=== PATIENT | male | born 1985 | race Caucasian/White ===

== ENCOUNTER 2020-03-29 00:40 | Inpatient (IN) | payer SELFPAY ==
[2020-03-29 00:40] VITALS: BMI 24.4
[2020-03-29 01:39] VITALS: BP 129/81; PULSE 94; RESP 18; TEMP 36.5; O2SAT 95
--- NOTE | 2020-03-29 04:28 | PC.NURSE ---
Patient is calm and cooperative on admission. Very articulate.
[2020-03-29 06:00] VITALS: BP 96/57; PULSE 62; RESP 17; TEMP 36.8; O2SAT 99
[2020-03-29] MEDS: buPROPion SR (12 HR) 100 mg Tablet 200 MG PO (08:59)
--- NOTE | 2020-03-29 09:51 | PM.NHP ---
Providers/Chief Complaint Admitting Physician: Aramis Emanuel MD Chief Complaint: si/depression HPI NPU History of Present Illness Boy Emanuel is a 34 year old male who presented to an outside emergency room and they were unable to find him a bed so he was transferred to [facility] and admitted to the neuropsychiatric unit secondary to reports of psychosis, feeling unsafe with a history of previous psychosis and hospitalization. He reports today that he is from what he can. He came up to the [place] area to go hunting and fishing with a friend who he knew his sister quite well with a report that there will be jobs here for him to obtain. Unfortunately when he got here there was no job in the situation at his friend's place got strange he reports. He reports that his friend is a and that he and some of the other people in the house put some type of spell on him. He reports that his mind is being controlled and they have also hacked into his phone. He tells us around the movie and visible dragon that was released in 2013. He reports that they did something to his phone and made it seem like to move he was released in 2019. He reports that he had gone to the hospital twice in the last week or so and finally they admitted him this time. He reports that there was a fan in the house and when he looked at a marking on the fan that should have been there he noticed that there was a marking on the bottom of the fan had the name of the actor from the movie on it and when he looked up into the other room the seem that was playing on his phone and was playing on the TV. He endorsed other phenomenon and reports that a woman that stays there lives in a wheelchair reports that she used to practice witchcraft but denied doing it currently. He reports that he was hospitalized about 2 years ago in [facility] for the same kinds of symptoms. He has been alternatives of initiating Abilify and he understood and agreed to proceed as is documented in this note. Psychiatric history: He endorses only these 2 hospitalizations in his life. He reports that he has had psychiatric follow-up. However he cannot give specifics. Substance abuse history: He reports he smokes about a pack of cigarettes a day, cocaine, and he smokes marijuana daily, that he has a history of methamphetamine use as well as opiate use with Suboxone maintenance therapy at one point in his life as well as methadone treatment at one point in his life. He reports he has been to rehab about 10-15 times and has had 2 DUIs. Family history: He does report addiction issues on his father side is unclear of any mental health history or history of family members with suicide attempts or completions. Developmental history: He reports that he was born with a broken collarbone. He endorsed learning to walk and talk and meeting his developmental milestones on time. He does report that he had speech therapy when he was in his grade school years but denied learning support, emotional support or special education classes. Psychosocial history: He reports his mother and father were together when he was born and that he has an older sister who is also a product of that union. He denies either of his parents having kids with any other partners. He reports that his childhood was good and denied emotional, physical or sexual abuse. He endorsed getting to the 11th grade in high school, not finishing but going on to get his GED. 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 He is heterosexual with his longest relationship being 2 years. He is never been , he is never had biological children, he is never been in the , and he endorses being a [employer]. 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 He reports he is currently homeless and trying to get back to [place]. Legal history: He reports he is been in care home about 5 times and that the longest period of time he was in care home at once was 3 years. Medical history: Denied. Meds NPU Home Medications Medication Instructions Recorded Confirmed Last Taken Type bupropion HCl [Wellbutrin SR] 200 mg PO DAILY 03/29/20 03/29/20 Unknown History quetiapine [Seroquel] 300 mg PO BEDTIME 03/29/20 03/29/20 Unknown History Allergies Allergy/AdvReac Type Severity Reaction Status Date / Time No Known Allergies Allergy Verified 03/29/20 01:05 Mental Status Exam MSE Comments: This is a well-nourished, well-developed white male with adequate dress grooming and limited eye contact. No abnormal movements except for psychomotor retardation. Cooperative with exam in mild distress. Speech was decreased rate and volume. Mood described as okay, affect anxious. Thought process organized. Thought content: Patient denied any suicidal or homicidal ideation, there were no delusions reported but clear paranoid and persecutory delusions noted. He reported auditory and visual hallucinations but none currently. Attention and duration were intact and memory was intermittently reliable but none were formally tested. He was alert and oriented x3. Insight are impaired. Impulse control is limited. Vitals/I&O/Wt Last Vital Signs Temp 97.6 F 03/29/20 20:46 Pulse 74 03/29/20 20:46 Resp 17 03/29/20 20:46 BP 107/68 03/29/20 20:46 Pulse Ox 96 03/29/20 20:46 Weight last 48 hrs Weight 83.915 kg A&P Assessment and plan (1) Psychosis: Status: Acute (2) Methamphetamine abuse: Status: Acute (3) Cannabis abuse: Status: Acute Additional A&P Information This is a 34-year-old white male with a previous history of similar presentation with active cannabis and methamphetamine use with psychosis which either represents a drug-induced phenomenon or longstanding schizophrenia that might be exacerbated by his use who presents open to a trial of Abilify. 1. Continue current medication. Except: Start Abilify 10 mg p.o. every morning. 2. Continue every 15 minute checks for safety. 3. Encourage individual, group and milieu therapy. 4. Recommend sober living treatment at the highest level of care to which he is willing to commit. 5. We will need to explore ways to assist him to get back home if he chooses to make that decision once his psychosis clears. Involuntary Hold Information 96 Hour Hold: 96 Hour Involuntary Admission: Yes 96 Hour Hold Ending Date: 04/03/20 96 Hour Hold Ending Time: 00:40 Attestations NPU Medical Necessity Statement*: Inpatient hospitalization is medically necessary and the clinically appropriate intervention at this time. We will initiate/monitor medications and make changes as indicated. He will be in the hospital for over 2 midnights. Likely length of stay 3 to 5 days. Coding Level of Care Code Acute Tax Commissioner for Josseline Antonio Diagnoses Psychosis F29 Methamphetamine abuse F15.10 Cannabis abuse F12.10
[2020-03-29 14:00] VITALS: BP 127/59; PULSE 89; RESP 18; TEMP 36.5; O2SAT 98
[2020-03-29] MEDS: ARIPiprazole 10 mg Tablet PO (17:20)
[2020-03-29 20:46] VITALS: BP 107/68; PULSE 74; RESP 17; TEMP 36.4; O2SAT 96
[2020-03-29] MEDS: trazodone 50 mg Tablet PO (20:47)
[2020-03-29] MEDS: quetiapine 300 mg Tablet PO (20:47)
[2020-03-29] MEDS: hyDROXYzine 25 mg Capsule 50 MG PO (20:47)
[2020-03-29] MEDS: ondansetron 4 MG Tablet PO (23:19)
[2020-03-30 06:00] VITALS: BP 130/80; PULSE 89; RESP 17; TEMP 36.6; O2SAT 96
[2020-03-30] MEDS: buPROPion SR (12 HR) 100 mg Tablet 200 MG PO (09:26)
[2020-03-30] MEDS: ARIPiprazole 10 mg Tablet PO (09:26)
--- NOTE | 2020-03-30 12:42 | PM.NPN ---
Subjective NPU Subjective: Interval history: Labs today reporting that he is not having any side effects from the medication and that he is having a decrease in the troubling thoughts. He did not go as far as the called him delusional or unreal but he did not seem to have any issue with those thoughts diminishing. He went on to say that he hopes the thoughts go away completely. He reports that he slept all right and he is eating fine. Mental Status Exam MSE Comments: This is a well-nourished, well-developed white male with adequate dress grooming and limited eye contact. No abnormal movements except for psychomotor retardation. Cooperative with exam in mild distress. Speech was decreased rate and volume. Mood described as fine, affect anxious. Thought process organized. Thought content: Patient denied any suicidal or homicidal ideation, there were no delusions reported but clear paranoid and persecutory delusions noted. He reported auditory and visual hallucinations but none currently. Attention and duration were intact and memory was intermittently reliable but none were formally tested. He was alert and oriented x3. Insight are impaired. Impulse control is limited. Patient look without found amount alone anymore had subjective Vitals/I&O/Wt Last Vital Signs Temp 98.2 F 03/30/20 19:51 Pulse 69 03/30/20 19:51 Resp 17 03/30/20 19:51 BP 112/73 03/30/20 19:51 Pulse Ox 98 03/30/20 19:51 Weight last 48 hrs Weight 83.007 kg A&P Additional A&P Information (1) Psychosis: (2) Methamphetamine abuse: (3) Cannabis abuse: This is a 34-year-old white male with a previous history of similar presentation with active cannabis and methamphetamine use with psychosis which either represents a drug-induced phenomenon or longstanding schizophrenia that might be exacerbated by his use who presents open to a trial of Abilify. 1. Continue current medication. May consider increasing Abilify tomorrow. 2. Continue every 15 minute checks for safety. 3. Encourage individual, group and milieu therapy. 4. Recommend sober living treatment at the highest level of care to which he is willing to commit. 5. We will need to explore ways to assist him to get back home if he chooses to make that decision once his psychosis clears. Involuntary Hold Information 96 Hour Hold: 96 Hour Involuntary Admission: Yes 96 Hour Hold Ending Date: 04/03/20 96 Hour Hold Ending Time: 00:40 Attestations NPU Medical Necessity Statement*: Inpatient hospitalization is medically necessary and the clinically appropriate intervention at this time. We will initiate/monitor medications and make changes as indicated. Likely length of stay 2-4 days. Coding Level of Care Code Acute Stakeholder Manager for Josseline Antonio
[2020-03-30 14:00] VITALS: BP 123/98; PULSE 96; RESP 18; TEMP 36.7
[2020-03-30 19:51] VITALS: BP 112/73; PULSE 69; RESP 17; TEMP 36.8; O2SAT 98
[2020-03-30] MEDS: trazodone 50 mg Tablet PO (20:37)
[2020-03-30] MEDS: quetiapine 300 mg Tablet PO (20:37)
[2020-03-30] MEDS: hyDROXYzine 25 mg Capsule 50 MG PO (20:37)
[2020-03-31 06:00] VITALS: BP 107/71; PULSE 66; RESP 16; TEMP 36.9; O2SAT 95
[2020-03-31] MEDS: ARIPiprazole 10 mg Tablet PO (08:37)
[2020-03-31] MEDS: buPROPion SR (12 HR) 100 mg Tablet 200 MG PO (08:37)
[2020-03-31 14:00] VITALS: BP 105/65; PULSE 63; RESP 18; TEMP 36.8; O2SAT 97
--- NOTE | 2020-03-31 14:03 | P.PN_ITS ---
Subjective NPU Subjective: Interval history: Boy presents today reporting continued improvement in his thinking. He reports that he feels the Abilify is really helpful and he is hopeful he can get the prescription filled. I explained to him the process of getting his medications filled here at the hospital pharmacy. The social work team and his family on a possible plan will get him back home safely. We discussed the risk benefits and alternatives of a plan for discharge tomorrow and he understood and agreed to proceed as is documented in this note. He reports that he is eating better and his sleep has improved. Mental Status Exam MSE Comments: This is a well-nourished, well-developed white male with adequate dress grooming and limited eye contact. No abnormal movements except for resolving psychomotor retardation. Cooperative with exam less distress. Speech was more normal rate and volume. Mood described as getting better, affect less anxious. Thought process organized. Thought content: Patient denied any suicidal or homicidal ideation, there were no delusions reported but resolving paranoid and persecutory delusions noted. He reported auditory and visual hallucinations but none currently. Attention and concentration were intact and memory was intermittently reliable but none were formally tested. He was alert and oriented x3. Insight and judgment are improving. Impulse control is limited, but improving. Vitals/I&O/Wt Last Vital Signs Temp 97.9 F 03/31/20 19:51 Pulse 63 03/31/20 19:51 Resp 16 03/31/20 19:51 BP 122/76 03/31/20 19:51 Pulse Ox 98 03/31/20 19:51 Weight last 48 hrs Weight 83.007 kg A&P Additional A&P Information (1) Psychosis: (2) Methamphetamine abuse: (3) Cannabis abuse: This is a 34-year-old white male with a previous history of similar presentation with active cannabis and methamphetamine use with psychosis which either r epresents a drug-induced phenomenon or longstanding schizophrenia that might be exacerbated by his use who presents open to a trial of Abilify. 1. Continue current medication. 2. Continue every 15 minute checks for safety. 3. Encourage individual, group and milieu therapy. 4. Recommend sober living treatment at the highest level of care to which he is willing to commit. 5. Plan for discharge tomorrow. Involuntary Hold Information 96 Hour Hold: 96 Hour Involuntary Admission: Yes 96 Hour Hold Ending Date: 04/03/20 96 Hour Hold Ending Time: 00:40 Attestations NPU Medical Necessity Statement*: Inpatient hospitalization is medically necessary and the clinically appropriate intervention at this time. We will initiate/monitor medications and make changes as indicated. Likely length of stay 1-3 days. Coding Level of Care Code Acute Hoop Riveting Machine Operator for Josseline Antonio
--- NOTE | 2020-03-31 14:55 | PC.RESP ---
SMOKING CESSATION INFORMATION SENT TO PATIENT.
[2020-03-31 19:51] VITALS: BP 122/76; PULSE 63; RESP 16; TEMP 36.6; O2SAT 98
[2020-03-31] MEDS: hyDROXYzine 25 mg Capsule 50 MG PO (20:14)
[2020-03-31] MEDS: quetiapine 300 mg Tablet PO (20:14)
[2020-03-31] MEDS: trazodone 50 mg Tablet PO (20:14)
--- NOTE | 2020-04-01 04:09 | P.DS_ITS ---
Diagnoses at Discharge Discharge Diagnosis (1) Psychosis: Status: Acute (2) Methamphetamine abuse: Status: Acute (3) Cannabis abuse: Status: Acute Reason for Visit Reason for Visit: si/depression Brief History: History of Present Illness Boy Emanuel is a 34 year old male who presented to an outside emergency room and they were unable to find him a bed so he was transferred to [facility] and admitted to the neuropsychiatric unit secondary to reports of psychosis, feeling unsafe with a history of previous psychosis and hospitalization. He reports today that he is from what he can. He came up to the [place] area to go hunting and fishing with a friend who he knew his sister quite well with a report that there will be jobs here for him to obtain. Unfortunately when he got here there was no job in the situation at his friend's place got strange he reports. He reports that his friend is a and that he and some of the other people in the house put some type of spell on him. He reports that his mind is being controlled and they have also hacked into his phone. He tells us around the movie and visible dragon that was released in 2013. He reports that they did something to his phone and made it seem like to move he was released in 2019. He reports that he had gone to the hospital twice in the last week or so and finally they admitted him this time. He reports that there was a fan in the house and when he looked at a marking on the fan that should have been there he noticed that there was a marking on the bottom of the fan had the name of the actor from the movie on it and when he looked up into the other room the seem that was playing on his phone and was playing on the TV. He endorsed other phenomenon and reports that a woman that stays there lives in a wheelchair reports that she used to practice witchcraft but denied doing it currently. He reports that he was hospitalized about 2 years ago in [facility] for the same kinds of symptoms. He has been alternatives of initiating Abilify and he understood and agreed to proceed as is documented in this note. Psychiatric history: He endorses only these 2 hospitalizations in his life. He reports that he has had psychiatric follow-up. However he cannot give specifics. Substance abuse history: He reports he smokes about a pack of cigarettes a day, cocaine, and he smokes marijuana daily, that he has a history of methamphetamine use as well as opiate use with Suboxone maintenance therapy at one point in his life as well as methadone treatment at one point in his life. He reports he has been to rehab about 10-15 times and has had 2 DUIs. Family history: He does report addiction issues on his father side is unclear of any mental health history or history of family members with suicide attempts or completions. Developmental history: He reports that he was born with a broken collarbone. He endorsed learning to walk and talk and meeting his developmental milestones on time. He does report that he had speech therapy when he was in his grade school years but denied learning support, emotional support or special education classes. Psychosocial history: He reports his mother and father were together when he was born and that he has an older sister who is also a product of that union. He denies either of his parents having kids with any other partners. He reports that his childhood was good and denied emotional, physical or sexual abuse. He endorsed getting to the 11th grade in high school, not finishing but going on to get his GED. 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 He is heterosexual with his longest relationship being 2 years. He is never been , he is never had biological children, he is never been in the , and he endorses being a Protestant. 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 He reports he is currently homeless and trying to get back to [place]. Legal history: He reports he is been in retirement about 5 times and that the longest period of time he was in retirement at once was 3 years. Medical history: Denied. Hospital Course Hospital Course Boy presented to an outside hospital reporting psychosis and active addiction. He was transferred to [facility] admitted to neuropsychiatric unit for definitive treatment of those issues. He was quite psychotic and believing that the people he was visiting were using witchcraft against him. He ultimately was open to initiating Abilify and showed marked improvement with that medication. He ultimately had moved out to this area prior to this psychotic break which was his second third in his life and wanting assistance and returning to his home state of [place]. Prior to the hospitalization he had routine laboratory studies which were within normal limits except for few outliers. Additionally had a general medical evaluation which was also within normal limits and revealed no new acute processes. Discharge Summary At the time of discharge he was absent lethality and his psychosis was resolving. His mood and anxiety were well managed and he endorsed a plan to avoid all drugs of abuse and follow-up with outpatient services as the treatment team recommended. He was evaluated and deemed to be absent credible lethality at [facility] in inpatient hospitalization, so he was discharged. Involuntary Hold Information 96 Hour Hold: 96 Hour Involuntary Admission: Yes 96 Hour Hold Ending Date: 04/03/20 96 Hour Hold Ending Time: 00:40 Mental Status Exam MSE Comments: This is a well-nourished, well-developed white male with adequate dress grooming and improving eye contact. No abnormal movements except for resolving psychomotor retardation. Cooperative with exam in no acute distress. Speech was more normal rate and volume. Mood described as getting better, affect congruent. Thought process organized. Thought content: Patient denied any suicidal or homicidal ideation, there were no delusions reported and resolving paranoid and persecutory delusions noted. He reported auditory and visual hallucinations but none currently. Attention and concentration were intact and memory was more reliable but none were formally tested. He was alert and oriented x3. Insight and judgment are improving. Impulse control is limited, but improving. Discharge Data Vitals: Last Vital Signs Temp 97.9 F 03/31/20 19:51 Pulse 63 03/31/20 19:51 Resp 16 03/31/20 19:51 BP 122/76 03/31/20 19:51 Pulse Ox 98 03/31/20 19:51 Discharge Plan Discharge Patient Disposition: Home Condition: Stable Prescriptions: New aripiprazole 10 mg Tablet 10 mg PO DAILY 30 Days Qty: 30 RF: 1 Continued Seroquel 300 mg Tablet 300 mg PO BEDTIME 30 Days Qty: 30 RF: 1 Wellbutrin SR 200 mg Tablet Sustained-Release 12 Hr 200 mg PO DAILY 30 Days Qty: 30 RF: 1 Discharge Orders: Discharge Order (Routine); Ordered 04/01/20 Ordered By: Aramis Emanuel Discharge Diet: Regular Discharge Activity: Resume usual activity Patient Instructions: Aripiprazole (By mouth), Anxiety (DC) Discharge Date/Time: 04/01/20 08:30 Discharge Attestations NPU Time Spent in Discharge Care*: less than 30 min Specific Discharge Activities: Specific discharge activities: educating patient, discussing with protective services case worker/social workers/dc planners, docu menting/other paperwork and evaluating patient/reviewing data Coding Level of Care Code Acute Machine Icer for Cosmeg Fwd Diagnoses Psychosis F29 Methamphetamine abuse F15.10 Cannabis abuse F12.10
[2020-04-01 06:00] VITALS: BP 123/76; PULSE 72; RESP 17; TEMP 36.7; O2SAT 97
[2020-04-01 07:45] VITALS: BP 123/76; PULSE 72; RESP 17; TEMP 36.7; O2SAT 97
[2020-04-01] MEDS: buPROPion SR (12 HR) 100 mg Tablet 200 MG PO (08:11)
[2020-04-01] MEDS: ARIPiprazole 10 mg Tablet PO (08:11)
--- NOTE | 2020-04-01 12:50 | PC.SOCIAL ---
mom called asking about patient. this worker does not see a release of information to be able to talk about patient. general questions were answered. Dejah Emanuel [phone]
== END 2020-04-01 08:30 | disposition home or self-care (01) | DRG 885 ==
PROVIDERS: Admitting Provider Psychiatry & Neurology Psychiatry; Visit Provider Psychiatry & Neurology Psychiatry
DX: F23 Brief psychotic disorder (principal); R45.851 Suicidal ideations; F12.10 Cannabis abuse, uncomplicated; F15.10 Other stimulant abuse, uncomplicated; F17.210 Nicotine dependence, cigarettes, uncomplicated; F32.9 Major depressive disorder, single episode, unspecified
CPT/HCPCS: 12345; Q0162